=== PATIENT | female | born 1970 | race Caucasian/White ===

== ENCOUNTER 2016-07-08 07:39 | Emergency (ER) | payer SELFPAY ==
--- NOTE | 2016-07-08 08:44 | ER Document Report ---
ED Medical Screen (RME) - General Chief Complaint: Leg Pain Stated Complaint: RIGHT LEG PAIN Time Seen by Provider: 07/08/16 08:40 Mode of Arrival: Ambulatory Information source: Patient Notes: 45-year-old female with a history of right back chronic pain with sciatica, pulled out a heavy chair making her back hurt worse on Tuesday. She also developed right calf pain at the same time and she went to Dr. Annemarie prakash yesterday wondering if it was due to the same injury but he wanted her to have a venous Doppler ultrasound to rule out a blood clot. Her posterior right calf muscle is tender down to the Achilles. Achilles is intact. TRAVEL OUTSIDE OF THE [place] IN LAST 30 DAYS: No - Related Data Allergies/Adverse Reactions: No Known Allergies Allergy (Verified 07/08/16 07:43) Past Medical History Pulmonary Medical History: Reports: Hx Bronchitis Renal/ Medical History: Denies: Hx Peritoneal Dialysis Past Surgical History: Reports: Hx Oral Surgery, Hx Tonsillectomy - Immunizations Hx Diphtheria, Pertussis, Tetanus Vaccination: Yes Physical Exam - Vital signs Vitals: Temp Pulse Resp BP Pulse Ox 98.2 F 111 H 22 H 133/86 H 96 07/08/16 07:44 07/08/16 07:44 07/08/16 07:44 07/08/16 07:44 07/08/16 07:44 Course - Vital Signs Vital signs: Temp Pulse Resp BP Pulse Ox 98.2 F 111 H 22 H 133/86 H 96 07/08/16 07:44 07/08/16 07:44 07/08/16 07:44 07/08/16 07:44 07/08/16 07:44
[2016-07-08] MEDS ORDERED: OXYCODONE-ACETAMINOPHEN 5-325 MG TABLET PO ONE (10:12)
--- NOTE | 2016-07-08 10:15 | ER Document Report ---
HPI - HPI Patient complains to provider of: right calf pain Onset: Other - tuesday Onset/Duration: Gradual, Persistent Quality of pain: Achy Pain Level: 4 Context: 45 yo female with chronic back pain moved chair on using increased back pain and sciatica, also developed posterior right calf pain. Went to chiropractor who wanted her to come to er to make sure it was not DVT. No chest pain or SOB. Associated Symptoms: None Exacerbated by: Movement, Walking Relieved by: Denies Similar symptoms previously: No Recently seen / treated by doctor: Yes - ROS ROS below otherwise negative: Yes Systems Reviewed and Negative: Yes All other systems reviewed and negative - REPRODUCTIVE Reproductive: DENIES: : - DERM Skin Color: Normal Past Medical History - General Information source: Patient - Social History Smoking Status: Current Some Day Smoker Chew tobacco use (# tins/day): No Frequency of alcohol use: Rare Drug Abuse: None Lives with: Family Family History: Reviewed & Not Pertinent Patient has suicidal ideation: No Patient has homicidal ideation: No Pulmonary Medical History: Reports: Hx Bronchitis Renal/ Medical History: Denies: Hx Peritoneal Dialysis Past Surgical History: Reports: Hx Oral Surgery, Hx Tonsillectomy - Immunizations Hx Diphtheria, Pertussis, Tetanus Vaccination: Yes Vertical Provider Document - CONSTITUTIONAL Agree With Documented VS: Yes Exam Limitations: No Limitations General Appearance: No Apparent Distress - INFECTION CONTROL TRAVEL OUTSIDE OF THE [place] IN LAST 30 DAYS: No - HEENT HEENT: Normocephalic - NECK Neck: Supple - RESPIRATORY Respiratory: Breath Sounds Normal, No Respiratory Distress O2 Sat by Pulse Oximetry: 96 - CARDIOVASCULAR Cardiovascular: Regular Rate, Regular Rhythm - MUSCULOSKELETAL/EXTREMETIES Musculoskeletal/Extremeties: MAEW, FROM, Tender - right posterior lower leg muscle all thje way down to the achilles tendon - NEURO Level of Consciousness: Awake, Alert, Appropriate - DERM Integumentary: Warm, Dry, No Rash Course - Vital Signs Vital signs: Temp Pulse Resp BP Pulse Ox 98.2 F 111 H 22 H 133/86 H 96 07/08/16 07:44 07/08/16 07:44 07/08/16 07:44 07/08/16 07:44 07/08/16 07:44 Discharge - Discharge Clinical Impression: RIGHT LOWER LEG MUSCLE STRAIN Condition: Good Disposition: HOME, SELF-CARE Instructions: Warm Packs ([facility]), Use of Xtiv-Ixe-Esixmfv Ibuprofen ([facility]), Oral Narcotic Medication ([facility]) Additional Instructions: the venous doppler ultrasound is negative for vein clot warm compress motrin for pain Return to your chiropractor as needed Please complete the patient satisfaction survey if you get one, and return it.. If you do not receive a survey, then you can go to the [facility] website, [email or web address] and place your comments about your very good care. Thank you very much. It was a pleasure being your medical provider today. Referrals: MARIOLA PANDYA MD [Primary Care Provider] - Follow up as needed
[2016-07-08 10:47] VITALS: BP 130/75
== END 2016-07-08 10:48 | disposition home or self-care (01) ==
LOC: ER 07:39
DX: S86.911A Strain of unspecified muscle(s) and tendon(s) at lower leg level, right leg, initial encounter (principal); F17.200 Nicotine dependence, unspecified, uncomplicated; X58.XXXA Exposure to other specified factors, initial encounter
CPT/HCPCS: 93971; 99283

== ENCOUNTER 2017-01-11 07:04 | Emergency (ER) | payer SELFPAY ==
--- NOTE | 2017-01-11 07:32 | ER Document Report ---
HPI - HPI Patient complains to provider of: Urinary pressure and frequency Onset: Other - Tuesday Onset/Duration: Gradual Pain Level: 2 Context: 46-year-old female complaining of suprapubic pressure, urinary frequency and urgency since Tuesday. No fever. No flank pain. No nausea vomiting. No vaginal discharge or discomfort. Associated Symptoms: None Exacerbated by: Denies Relieved by: Denies Similar symptoms previously: Yes Recently seen / treated by doctor: No - ROS ROS below otherwise negative: Yes Systems Reviewed and Negative: Yes All other systems reviewed and negative - REPRODUCTIVE Reproductive: DENIES: : - DERM Skin Color: Normal Past Medical History - General Information source: Patient - Social History Smoking Status: Current Some Day Smoker Frequency of alcohol use: None Drug Abuse: None Lives with: Family Family History: Reviewed & Not Pertinent Patient has suicidal ideation: No Patient has homicidal ideation: No Pulmonary Medical History: Reports: Hx Bronchitis Renal/ Medical History: Denies: Hx Peritoneal Dialysis Past Surgical History: Reports: Hx Oral Surgery, Hx Tonsillectomy - Immunizations Hx Diphtheria, Pertussis, Tetanus Vaccination: Yes Vertical Provider Document - CONSTITUTIONAL Agree With Documented VS: Yes Exam Limitations: No Limitations General Appearance: No Apparent Distress - INFECTION CONTROL TRAVEL OUTSIDE OF THE [place] IN LAST 30 DAYS: No - HEENT HEENT: Normocephalic - NECK Neck: Supple - RESPIRATORY Respiratory: Breath Sounds Normal, No Respiratory Distress O2 Sat by Pulse Oximetry: 100 - CARDIOVASCULAR Cardiovascular: Regular Rate, Regular Rhythm - GI/ABDOMEN Gastrointestinal: Abdomen Soft, Abdomen Tender - suprapubic - BACK Back: Normal Inspection. negative: CVA Tenderness-Right, CVA Tenderness-Left - MUSCULOSKELETAL/EXTREMETIES Musculoskeletal/Extremeties: REBA PRADO - NEURO Level of Consciousness: Awake, Alert, Appropriate Motor/Sensory: No Motor Deficit, No Sensory Deficit - DERM Integumentary: No Rash Course - Re-evaluation Re-evalutation: 01/11/17 08:48 Urinalysis positive for urinary tract infection, culture is pending - Vital Signs Vital signs: Temp Pulse Resp BP Pulse Ox 97.9 F 93 18 131/73 H 100 01/11/17 07:06 01/11/17 07:06 01/11/17 07:06 01/11/17 07:06 01/11/17 07:06 Discharge - Discharge Clinical Impression: Cystitis Condition: Good Disposition: HOME, SELF-CARE Instructions: Nitrofurantoin ([facility]), Urinary Tract Infection ([facility]) Additional Instructions: plenty of fluids to er if worse urine culture is pending Please complete the patient satisfaction survey if you get one, and return it.. If you do not receive a survey, then you can go to the [facility] website, [email or web address] and place your comments about your very good care. Thank you very much. It was a pleasure being your medical provider today. Prescriptions: Nitrofurantoin/Nitrofuran Mac [Macrobid 100 mg Capsule] 100 mg PO BID #14 capsule Phenazopyridine HCl [Pyridium 100 Mg Tablet] 100 mg PO TID #20 tablet Forms: Return to Work
[2017-01-11 08:31] LABS: APPEARANCE,URINE CLOUDY; BILIRUBIN,URINE NEGATIVE (NEGATIVE); GLUCOSE, URINE NEGATIVE (NEGATIVE); KETONES,URINE TRACE mg/dL (NEGATIVE); LEUKOCYTE ESTERASE,URINE LARGE (NEGATIVE); NITRITE,URINE NEGATIVE (NEGATIVE); PROTEIN,URINE NEGATIVE (NEGATIVE); URINE SPECIFIC GRAVITY 1.012; UROBILINOGEN,URINE NEGATIVE mg/dL (<2.0)
[2017-01-11] MEDS ORDERED: PHENAZOPYRIDINE HCL 100 MG TABLET PO ONE (08:39)
[2017-01-11] MEDS ORDERED: NITROFURANTOIN MONOHYD/M-CRYST 100 MG CAPSULE PO ONE (08:39)
[2017-01-11] MEDS ORDERED: ONDANSETRON 4 MG TAB.RAPDIS PO ONE (08:39)
[2017-01-11 09:04] VITALS: BP 116/83
== END 2017-01-11 09:04 | disposition home or self-care (01) ==
LOC: ER 07:04
DX: N30.90 Cystitis, unspecified without hematuria (principal); F17.200 Nicotine dependence, unspecified, uncomplicated
CPT/HCPCS: 99283; 87086; 81001; S0119; J3490; J8499

== ENCOUNTER 2018-11-06 09:47 | Emergency (ER) | payer BC, OTHER ==
[2018-11-06 10:09] VITALS: BP 122/79
--- NOTE | 2018-11-06 11:30 | ER Document Report ---
HPI - HPI Patient complains to provider of: Skin rash Time Seen by Provider: 11/06/18 10:50 Onset: Last week Onset/Duration: Persistent Quality of pain: Burning Pain Level: 3 Context: Patient presents complaining of pruritic skin rash to the plantar and palmar surface of hands and feet. Patient denies any new foods medications or detergents. Patient denies any history of eczema. 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 IN LAST 30 DAYS: No - HEENT HEENT: Atraumatic, Normocephalic - NECK Neck: Normal Inspection - RESPIRATORY Respiratory: No Respiratory Distress - CARDIOVASCULAR Pulses: Normal: Radial - MUSCULOSKELETAL/EXTREMETIES Musculoskeletal/Extremeties: MAEW - NEURO Level of Consciousness: Awake, Alert, Appropriate Motor/Sensory: No Motor Deficit - DERM Integumentary: Warm, Dry, Rash - Patient with maculopapular vesicular lesion to the palmar surface of hands and feet, some areas that are scaling. Patient with weeping open lesions to the plantar surface of right foot Course - Re-evaluation Re-evalutation: 11/06/18 11:28 Patient presents with likely dyshidrotic eczema that also has some open weeping lesions to plantar surface of right foot will cover with antibiotics and enco urage outpatient follow-up with dermatology. - Vital Signs Vital signs: Temp Pulse Resp BP Pulse Ox 98.6 F 96 20 122/79 96 11/06/18 10:07 11/06/18 10:07 11/06/18 10:07 11/06/18 10:07 11/06/18 10:07 Discharge - Discharge Clinical Impression: Dyshidrotic eczema Condition: Stable Disposition: HOME, SELF-CARE Instructions: Atopic Dermatitis (Eczema) ([facility]), Cephalexin ([facility]), Steroid Medication Additional Instructions: Return immediately for any new or worsening symptoms Followup with your primary care provider, call tomorrow to make a followup appointment Follow-up with dermatology for any persistent problems Prescriptions: Hydroxyzine HCl [Atarax 25 mg Tablet] 1 - 2 tab PO QID PRN #20 tablet PRN Reason: Prednisone [Deltasone 5 mg Tablet] 5 mg PO ASDIR PRN #100 tablet PRN Reason: Cephalexin Monohydrate [Keflex 500 mg Capsule] 500 mg PO Q6H 5 Days capsule Referrals: MARIOLA TAMEZ MD [Primary Care Provider] - Follow up as needed SETH CARRIZALES DO [ACTIVE STAFF] - Follow up as needed
== END 2018-11-06 11:40 | disposition home or self-care (01) ==
LOC: ER 09:47
DX: L30.1 Dyshidrosis [pompholyx] (principal)
CPT/HCPCS: 99283